=== PATIENT | male | born 1970 | race Caucasian/White ===

== ENCOUNTER 2024-06-03 17:56 | Emergency (ER) | payer OTHER, SELFPAY ==
[2024-06-03 18:02] VITALS: BP 145/94; PULSE 73; RESP 16; TEMP 36.7; O2SAT 100
--- NOTE | 2024-06-03 18:16 | ED_ITS ---
HPI - General Adult General Chief complaint: Extremity Injury, Upper Stated complaint: Left Leg Injury Time Seen by Provider: 06/03/24 18:17 Source: patient Mode of arrival: ambulatory Limitations: no limitations History of Present Illness HPI narrative: 53-year-old male presented for complaint of a wound to the left lower posterior leg sustained 2 months ago. He states he cut the leg on a metal cart, and has c leaned the site with soap and applied antibiotic ointment since the injury. Also applied Prid and attempted to drain the site using a new razor blade a few times. He states it feels like something needs to come out of it. Denies redness, swelling, warmth or pain to the site. Related Data Allergies Allergy/AdvReac Type Severity Reaction Status Date / Time No Known Allergies Allergy Verified 06/03/24 18:17 Review of Systems Review of Systems: CONSTITUTIONAL: Denies body aches, fever, chills, or sweats. EYES: Denies visual changes, redness, or discharge. ENT: Denies rhinorrhea, congestion CARDIOVASCULAR: Denies chest pain, palpitations, or edema. RESPIRATORY: Denies cough or dyspnea. GASTROINTESTINAL: Denies abdominal pain, nausea, vomiting, or diarrhea. SKIN: per HPI MUSCULOSKELETAL: Denies back pain, joint pain, or myalgia. NEUROLOGIC: Denies headache, numbness, tingling, or weakness. PMFSH Comments At time of signature, I have reviewed and agree with nursing past medical, surgical, social and family history unless otherwise noted. Please see nursing chart for further information. There is no relevant family history pertinent to the presenting complaint Exam Narrative: GENERAL: Well-appearing EYES: conjunctivae clear, and EOMI. ENT: Mucous membranes moist. Oropharynx without edema, erythema or lesions. CHEST: Clear to auscultation. HEART: Regular rate and rhythm. SKIN: Warm, dry. left posterior lower leg with 1.2cm dried round scabbed area, no fluctuance, warmth, erythema or tenderness. Mild light erythema surrounding the scabbed area c/w previously applied bandaid adhesive. NEURO: Alert and oriented x3. Course Course Emergency Course: Patient is aware of diagnosis, understands and agrees to treatment plan. Anticipatory guidance given. Patient agrees to follow-up as directed and is aware of reasons to seek care at the emergency department. Portions of this record may have been created with voice recognition software [facility] Care: Express Care Visit Vital Signs Vital signs: Reviewed Medical Decision Making MDM Narrative Medical decision making narrative: Discussed physical exam findings. Updated tetanus. Advised supportive measures and signs/symptoms to go to the ER. Pt is appropriate for outpt treatment and f/u. Differential Diagnosis Differential Diagnosis: Laceration, abrasion, avulsion, cellulitis, abscess Discharge Plan Discharge Clinical Impression: Visit for wound check Patient Disposition: Home, Self-Care Condition: Stable Instructions: Antibiotic Form, Acute Wounds (ED) Additional Instructions: Keep the area clean and dry - cleanse with warm water and mild soap and allow to fully dry. Ok to apply neosporin to the site Keep it open to air (no bandages) Watch for worsening symptoms including pain, redness, swelling, streaking, pus/drainage, fever. Go to the ER with any of these symptoms or concerns. Follow up with primary care provider in 1 week as needed. Prescriptions: New cephalexin 500 mg capsule 500 mg PO Q8H 5 Days Qty: 15 0RF Follow-up/Referrals: PHYSICIAN,FIRE EXTINGUISHER CHARGER [Primary Care Provider] -
[2024-06-03] MEDS: TETANUS,DIPHTHERIA,AC PERTUSSIS ADULT (0.5 ML) BOOSTRIX IM (18:30)
== END 2024-06-03 18:48 | disposition home or self-care (01) ==
PROVIDERS: Emergency Provider Nurse Practitioner Family
DX: Z48.00 Encounter for change or removal of nonsurgical wound dressing (principal)
CPT/HCPCS: 90471; 90715; 99203; G0463

== ENCOUNTER 2025-03-10 11:08 | Emergency (ER) | payer OTHER, SELFPAY ==
--- NOTE | 2025-03-10 11:09 | ED.URI ---
HPI - URI/Sore Throat General Chief Complaint: Upper Respiratory Infection Stated Complaint: cold/flu Time Seen by Provider: 03/10/25 11:08 Source: patient Mode of arrival: ambulatory Limitations: no limitations History of Present Illness HPI Narrative: Clyde is a 54-year-old male patient presenting to the clinic today with complaints sore throat, runny nose, cough, sneezing, nasal congestion, nausea, vomiting, and some body aches x3 days. He reports his has had similar symptoms x1 week. He denies any fevers or chills. Denies any shortness of breath, chest pain, or abdominal pain. Has taken Sudafed for his symptoms. He is a 1 ogsb-dbj-dcb tobacco smoker. Related Data Home Medications ?Medication ?Instructions ?Recorded ?Confirmed ?Last Taken ?Type No Home Medications 03/10/25 03/10/25 Unknown History Allergies Allergy/AdvReac Type Severity Reaction Status Date / Time No Known Allergies Allergy Verified 03/10/25 11:22 Review of Systems Review of Systems: Pertinent positives per HPI. Patient denies any fever, chills, rash, headache, visual changes, dizziness, shortness of breath, chest pain, palpitations, diarrhea, constipation, abdominal pain, or any urinary issues. PMFSH Comments At the time of my signature, I reviewed and agree with the nursing past medical, surgical, social, and family history. There is no relevant family history pertinent to the patient complaint. Exam Narrative: General: Well-developed, well nourished, in no apparent distress Head: Normocephalic, atraumatic Eyes: Pupils equally round and reactive to light bilaterally, EOM intact, sclera and conjunctive clear, no discharge, lids normal Ears: TMs intact and congested, ear canals clear, no drainage, grossly hearing normal. Nose: Nares patent, clear nasal discharge, mild inflammation, no sinus tenderness. Mouth: Oropharynx red without lesions or masses, good dentition, MMM. Postnasal drip Neck: Supple, trachea midline, no enlargement of anterior or posterior cervical nodes, no thyroid masses or goiter palpable. Cardio: Regular rate and rhythm, s1 and s2 normal, no murmur appreciated. Resp: Clear to auscultation bilaterally anteriorly and posteriorly, no rhonchi, rales, wheezing or rubs Course Course Emergency Course: Portions of this record may have been created with voice recognition software. Level of Care: Express Care Visit Vital Signs Vital signs: Vital Signs Temperature 36.9 C 03/10/25 11:16 Pulse Rate 93 03/10/25 11:16 Respiratory Rate 20 03/10/25 11:16 Blood Pressure 185/89 H 03/10/25 11:16 Pulse Oximetry 100 03/10/25 11:16 Oxygen Delivery Room Air 03/10/25 11:16 Temperature 36.9 C 03/10/25 11:16 Pulse Rate 93 03/10/25 11:16 Respiratory Rate 20 03/10/25 11:16 Blood Pressure 185/89 H 03/10/25 11:16 Pulse Oximetry 100 03/10/25 11:16 Oxygen Delivery Room Air 03/10/25 11:16 Vital signs reviewed MDM - URI/Sore Throat MDM Narrative Medical decision making narrative: At the time of visit patient is resting comfortably on the exam table. Patient appears to be nontoxic. Complaints sore throat, runny nose, cough, sneezing, nasal congestion, nausea, vomiting, and some body aches x3 days. He reports his has had similar symptoms x1 week. He denies any fevers or chills. Denies any shortness of breath, chest pain, or abdominal pain. Has taken Sudafed for his symptoms. He is a 1 ibsb-tll-wfp tobacco smoker. On exam patient has bilateral ear congestion, clear nasal drainage, oral pharynx red with postnasal drip, lung sounds are clear, and heart rates regular rate and rhythm. COVID, flu, and strep test were ordered. Labs: COVID, influenza, and strep test were performed and all testing was negative in the clinic today. We will send strep for culture Plan: I suspect patient has URI/pharyngitis/viral syndrome. Work note was given. Supportive measures were discussed with the patient and they voiced understanding discharge instructions and agrees to treatment plan. Return precautions reviewed Differential Diagnosis Differential diagnosis: Likely upper respiratory infection, croup, otitis media, sinusitis, viral infection, bronchitis, influenza, pharyngitis and other (COVID) Discharge Plan Discharge Clinical Impression: Viral infection Upper respiratory infection Qualifiers: URI type: unspecified URI Qualified Code(s): J06.9 - Acute upper respiratory infection, unspecified Pharyngitis Qualifiers: Pharyngitis/tonsillitis etiology: unspecified etiology Qualified Code(s): J02.9 - Acute pharyngitis, unspecified Patient Disposition: Home Condition: Stable Instructions: Antibiotic Form, Pharyngitis (ED), Upper Respiratory Infection (ED), Viral Syndrome (ED) Additional Instructions: COVID, flu, and strep test were performed in the clinic today. We will send strep for culture if this comes back positive we will contact you in place you on antibiotics at that time. May take Coricidin HBP for cold/flu symptoms Increase fluids and stay well hydrated May take Tylenol or motrin as directed on bottle for pain/fever May use Flonase 1 spray in each nare daily May take OTC antihistamines such as Zyrtec or Claritin daily as directed on bottle May apply Vicks vapor rub to chest to open sinuses Sinus rinses for congestion Cepacol spray, cough drops, throat lozenges, warm tea with honey/lemon, gargle salt water to soothe throat BRAT diet for diarrhea Clear liquids x 24 hours then advance as tolerated for nausea/vomiting Go to the ED if you develop a worsening in your condition- high fever not controlled by Tylenol or Motrin, dehydration, weakness, lethargy, shortness of breath, or chest pain. Follow up with your PCP in 3-5 days if symptoms persist. You have an elevated blood pressure in the clinic today and I recommend follow-up with primary care physician to have this reevaluated within the next week if symptoms persist. [place] [employer] guidelines state that normal blood pressure is 120/80 or less. Anything over 120/80 is considered elevated and should be monitored. You may need to decrease you salt intake and eat a heart healthy diet to help lower you blood pressure, other treatments would include decreasing stress, weight loss, stop caffeine, and quit smoking. Your primary care provider can determine whether you need to start antihypertensive medications. Untreated high blood pressure can cause dizziness, headaches, visual changes, blindness, kidney failure, stroke, heart attack, and male impotence. Patient Language: Cook Islander Prescriptions: No Action No Home Medications Follow-up/Referrals: UNKNOWN,DOCTOR [Non-Staff] Stand Alone Forms: Work/School Release IP Time of Disposition: 11:40 Quality NIHSS Nursing Documentation ED NIHSS nursing documentation: reviewed/agree
[2025-03-10 11:16] VITALS: BP 185/89; PULSE 93; RESP 20; TEMP 36.9; O2SAT 100
--- OUTSIDE RECORDS SUMMARY | 2025-03-10 11:35 | XMS_ITS | Clinical Summary ---
Author Organization [facility] Address [address] [facility], [address] [address] Phone Care Team Providers Care Retort Load Expediter Name Role Phone Emily Middleton APRN, CNP Primary Care Provider [phone] Duy Fan MD Unavailable Allergies No known active allergies Medications omeprazole (PriLOSEC) 20 MG CAPSULE DELAYED RELEASEIndicati ons:GERD Take 1 Capsule by mouth daily. Indications: GERD 90 Capsule 3 07/30/2024 Active Active Problems Problem Noted Date Diagnosed Date Benign prostatic hyperplasia without lower urinary tract symptoms 07/30/2024 Eczema of both upper extremities 10/15/2018 Gastroesophageal reflux disease 08/27/2018 Visit for well [facility] 08/27/2018 Resolved Problems Problem Noted Date Diagnosed Date Resolved Date Hypertension 08/27/2018 08/27/2018 Fatigue 08/27/2018 10/15/2018 Other constipation 08/27/2018 9 Immunizations Immunization Administration Dates Next Due TDAP Vaccine 07/06/2019 Family History Medical History Relation Name Comments No Known Problems Daughter Cancer Father lung and brain Lung Cancer Father No Known Problems Half-Sister Hypertension Maternal Grandmother Crohn's Disease Mother High Cholesterol Mother Hypertension Mother Stroke Mother to gi system Cancer Paternal Grandfather Hypertension Paternal Grandfather GERD Sister 1 High Cholesterol Sister 1 Hypertension Sister 1 No Known Problems Sister 2 Joselin No Known Problems Son Relation Name Status Comments Daughter Alive Father Half-Sister Alive Maternal Grandfather Maternal Grandmother Mother Paternal Grandfather Paternal Grandmother Sister 1 Alive Sister 2 Joselin Alive Son Alive Social History Tobacco Use Types Packs/Day Years Used Date Smoking Tobacco: Every Day Cigarettes 1 39.7 Started: 1985 Smokeless Tobacco: Never Alcohol Use Standard Drinks/Week Comments No 0 (1 standard drink = 0.6 oz pur e alcohol) PHQ-2 Answer Date Recorded Total Score - Questions 1-9 0 07/04 Sexually Active Control Partners Comments Yes Female Sex and Gender Information Value Date Recorded Sex Assigned at Not on file Legal Sex Male 7:14 PM CDT Gender Identity Not on file Sexual Orientation Not on file Last Filed Vital Signs Vital Sign Reading Time Taken Comments Blood Pressure 139/95 11/18/2024 12:55 PM CDT Pulse 69 11/18/2024 12:55 PM CDT Temperature 37 C (98.6 F) 11/18/2024 11:08 AM CDT Respiratory Rate 17 11/18/2024 12:55 PM CDT Oxygen Saturation 100% 11/18/2024 12:55 PM CDT Inhaled Oxygen Concentration - - Weight 79.8 kg (176 lb) 11/07/2024 2:12 PM CDT Height 175.3 cm (5' 9) 11/07/2024 2:12 PM CDT Body Mass Index 25.99 11/07/2024 2:12 PM CDT Plan of Treatment Health Maintenance Due Date Last Done Comments Hepatitis C Virus (HCV) Screening 1970 Hepatitis B Immunization (1 of 3 - 19+ 3-dose series) 09/25/1990 Pneumococcal Immunization (5 0+ years) (1 of 2 - PCV) 09/25/1990 Cologuard 09/25/2016 Immunochemical Fecal Occult Blood 09/25/2016 Zoster Immunization (1 of 2) 09/25/2021 Influenza Immunization (#1) 2025 SARS-COV-2 Immunization (3 - 2024- season) 2025 02/09/2021, 01/19/2021 Lung Cancer Screening 10/14/2025 10/14/2024 Td Immunization Every 10 Yea rs (Adults With 1 Tdap) 07/06/2029 07/06/2019 Colonoscopy 11/18/2029 11/18/2024, 11/18/2024, 10/01/2018 Colorectal Cancer Screening 11/18/2029 Respiratory Syncytial Virus (RSV) Immunization (Adult) (1 - 1-dose 75+ series) 09/25/2046 Human Papillomavirus (HPV) Immunization Aged Out No longer eligible b ased on patient's age to complete this topic Meningococcal Immunization (ACWY) Aged Out No longer eligible b ased on patient's age to complete this topic Rotavirus Immunization Aged Out No lo nger eligible based on patient's age to complete this topic Procedures Procedure Name Priority Date/Time Associated Diagnosis Comments CT CHEST SCREENING WO Routine 10/14/2024 5:33 PM CDT Encounter for screening for lung cancer from Last 3 Months or Most Recently Relevant to Health Maintenance Results * CT CHEST SCREENING WO (10/14/2024 5:33 PM CDT) Anatomical Region Laterality Modality Chest N/A Computed Tomogra phy 10/25/2024 8:12 AM CDT Impressions 10/25/2024 8:14 AM CDT IMPRESSION: Mixed attenuation, sub solid nodule within the right upper lobe measuring 8 mm in maximum dimension. Six-month follow-up LD CT is recommended. Additional scattered bilateral pulmonary nodules measuring up to 4 mm. Utda-hd-iknqtgbv upper lobe predominant emphysema with pleuroparenchymal scarring in the apices. Bronchial wall thickening as can be seen with chronic bronchitis in current smokers. Centrilobular nodules as can be seen in the setting of respiratory bronchiolitis. Additional findings as above. Lung-RADS category 3: Probably benign. Recommendation: Low dose CT of chest in 6 months. Narrative 10/25/2024 8:14 AM CDT EXAM DESCRIPTION: CT CHEST SCREENING WO REASON FOR STUDY: Screening CT of the chest in a current smoker with a 25 pack year smoking history. Additional history: Father with history of lung carcinoma.. TECHNIQUE: Low dose CT scan of the chest was performed without intravenous contrast using helical scanning technique. The exam extends from the lung apices through the lung bases. Automatic exposure control was used as a dose optimization technique. NOTE: This study was performed for the specific purposes of lung cancer screening and is not an alternative to diagnostic chest CT. RADIATION DOSE: CT dose index volume (CTDIvol) = 3.42 mGy COMPARISON: None FINDINGS: SMOKING RELATED LUNG DISEASE: There is gaxy-tu-fvodszeo upper lobe predominant emphysema, with some pleuroparenchymal scarring within the apices. Both centrilobular and paraseptal components are present. There is bronchial wall thickening as can be seen with chronic bronchitis in current smokers. In addition, there are centrilobular nodules, as can be seen in the setting of respiratory bronchiolitis. LUNG NODULES: 3 mm nodule right apex image 49. There is a mixed attenuation, sub solid nodule noted within the right upper lobe on image number 109, measuring 8 mm in maximum dimension. The punctate more solid nodular components measure approximately 1 mm. Tiny bilateral nodules at the fissures, measuring up to 4 mm. Scattered tiny granulomatous calcifications. 4 mm nodule right lower lobe image number 158 4 mm nodule lateral right lower lobe, image 193. 2 mm nodule posterolateral left lower lobe image 113. CORONARY ARTERY CALCIFICATION: Minimal OTHER: No pneumonic consolidation. There is subsegmental scarring and atelectasis. There is no effusion or pneumothorax. There are secretions within the dependent trachea. The thyroid gland is unremarkable. There are scattered subcentimeter mediastinal and hilar nodes. The esophagus is unremarkable. The heart is normal in size without pericardial effusion. The thoracic aorta is normal in caliber. There is axillary lymphadenopathy. Scattered nodes measure up to 8.5 mm short axis. The chest wall is unremarkable. Visualized upper abdomen reveals atherosclerotic vascular calcifications. There is diverticulosis. There is no acute osseous abnormality. Thoracic spondylosis and degenerative disc disease. THIS IS AN ELECTRONICALLY VERIFIED FINAL REPORT 10/25/2024 8:12 AM - Electronically signed by Sydney Downing M.D. TW: RAFAT Report ID: [id number] Reading Location: [id number] Procedure Note Sydney Downing MD - 10/25/2024 EXAM DESCRIPTION: CT CHEST SCREENING WO REASON FOR STUDY: Screening CT of the chest in a current smoker with a 25 pack year smoking history. Additional history: Father with history of lung carcinoma.. TECHNIQUE: Low dose CT scan of the chest was performed without intravenous contrast using helical scanning technique. The exam extends from the lung apices through the lung bases. Automatic exposure control was used as a dose optimization technique. NOTE: This study was performed for the specific purposes of lung cancer screening and is not an alternative to diagnostic chest CT. RADIATION DOSE: CT dose index volume (CTDIvol) = 3.42 mGy COMPARISON: None FINDINGS: SMOKING RELATED LUNG DISEASE: There is oakp-cd-raodqgto upper lobe predominant emphysema, with some pleuroparenchymal scarring within the apices. Both centrilobular and paraseptal components are present. There is bronchial wall thickening as can be seen with chronic bronchitis in current smokers. In addition, there are centrilobular nodules, as can be seen in the setting of respiratory bronchiolitis. LUNG NODULES: 3 mm nodule right apex image 49. There is a mixed attenuation, sub solid nodule noted within the right upper lobe on image number 109, measuring 8 mm in maximum dimension. The punctate more solid nodular components measure approximately 1 mm. Tiny bilateral nodules at the fissures, measuring up to 4 mm. Scattered tiny granulomatous calcifications. 4 mm nodule right lower lobe image number 158 4 mm nodule lateral right lower lobe, image 193. 2 mm nodule posterolateral left lower lobe image 113. CORONARY ARTERY CALCIFICATION: Minimal OTHER: No pneumonic consolidation. There is subsegmental scarring and atelectasis. There is no effusion or pneumothorax. There are secretions within the dependent trachea. The thyroid gland is unremarkable. There are scattered subcentimeter mediastinal and hilar nodes. The esophagus is unremarkable. The heart is normal in size without pericardial effusion. The thoracic aorta is normal in caliber. There is axillary lymphadenopathy. Scattered nodes measure up to 8.5 mm short axis. The chest wall is unremarkable. Visualized upper abdomen reveals atherosclerotic vascular calcifications. There is diverticulosis. There is no acute osseous abnormality. Thoracic spondylosis and degenerative disc disease. THIS IS AN ELECTRONICALLY VERIFIED FINAL REPORT 10/25/2024 8:12 AM - Electronically signed by Sydney Downing M.D. TW: RAFAT Report ID: [id number] Reading Location: [id number] IMPRESSION: Mixed attenuation, sub solid nodule within the right upper lobe measuring 8 mm in maximum dimension. Six-month follow-up LD CT is recommended. Additional scattered bilateral pulmonary nodules measuring up to 4 mm. Rfzo-jp-lofnxhmf upper lobe predominant emphysema with pleuroparenchymal scarring in the apices. Bronchial wall thickening as can be seen with chronic bronchitis in current smokers. Centrilobular nodules as can be seen in the setting of respiratory bronchiolitis. Additional findings as above. Lung-RADS category 3: Probably benign. Recommendation: Low dose CT of chest in 6 months. Emily Middleton APRN, CNP IMIsaak CT ORDERABLES Final R esult from Last 3 Months or Most Recently Relevant to Health Maintenance Insurance [facility] Care Teams Retort Load Expediter Relationship Specialty Start Date End Date Emily Middleton, KASHMIR BARCLAY [address] [facility] [place] [address] PCP - General Advanced Practice Nurse 07/30/24 Duy Fan MD [address] [facility] [address] [place] [address] Consulting Physician Colon and Rectal Surgery 09/17/24
--- OUTSIDE RECORDS SUMMARY | 2025-03-10 11:35 | XMS_ITS | Clinical Summary ---
Author Organization [facility] Address [address] [place] [address] Phone Care Team Providers Care Jewelry Enameler Name Role Phone Unavailable Primary Care Provider Unavailabl e Allergies No known active allergies Medications omeprazole (PriLOSEC) 20 mg Capsule, Delayed Release(E.C.) Take 20 mg by mouth daily. Active mupirocin (BACTROBAN) 2 % Ointment Apply to affected area of left fingers daily. 22 Gram 08/31/2020 4:56 PM MEDICAL ASSISTING INSTRUCTOR 1 Active HYDROcodone-acet aminophen (Lantry) 7.5-325 mg TabletIndication s:Laceration of finger of left hand without foreign body with damage to nail, unspecified finger, initial encounter Take 1 Tablet by mouth every 4 hours as needed for Pain. Max Daily Amount: 6 Tablets 20 Tablet 08/31/2020 6:15 PM MEDICAL ASSISTING INSTRUCTOR 1 Active Family History Medical History Relation Name Comments Unknown Father Unknown Mother Relation Name Status Comments Father Mother Social History Tobacco Use Types Packs/Day Years Used Date Smoking Tobacco: Every Day Smokeless Tobacco: Never Alcohol Use Standard Drinks/Week Comments Not Currently 0 (1 standard drink = 0.6 oz pur e alcohol) Sex and Gender Information Value Date Recorded Sex Assigned at Not on file Legal Sex Male 2:54 PM MEDICAL ASSISTING INSTRUCTOR Gender Identity Not on file Sexual Orientation Not on file Last Filed Vital Signs Vital Sign Reading Time Taken Comments Blood Pressure 162/92 08/31/2020 3:03 PM MEDICAL ASSISTING INSTRUCTOR Pulse 106 08/31/2020 3:03 PM MEDICAL ASSISTING INSTRUCTOR Temperature 36.9 C (98.4 F) 08/31/2020 3:03 PM MEDICAL ASSISTING INSTRUCTOR Respiratory Rate 19 08/31/2020 3:03 PM MEDICAL ASSISTING INSTRUCTOR Oxygen Saturation 100% 08/31/2020 3:03 PM MEDICAL ASSISTING INSTRUCTOR Inhaled Oxygen Concentration - - Weight 77.1 kg (170 lb) 08/31/2020 3:03 PM MEDICAL ASSISTING INSTRUCTOR Height 175.3 cm (5' 9) 08/31/2020 3:03 PM MEDICAL ASSISTING INSTRUCTOR Body Mass Index 25.1 08/31/2020 3:03 PM MEDICAL ASSISTING INSTRUCTOR Plan of Treatment Health Maintenance Due Date Last Done Comments DTAP/TDAP/TD VACCINES (1 - Tdap) 09/25/1990 HEPATITIS B VACCINES (1 of 3 - 19+ 3-dose series) 09/01 COLORECTAL SCREENING 09/25/2016 Colorectal Cancer Screening 09/25/2016 FIT-DNA Q 3 years 09/25/2016 FIT/FOBT Q 1 year 09/25/2016 Flex Sig/CT Colonography Q 5 years 09/25/2016 ZOSTER VACCINE (1 of 2) 09/25/2021 INFLUENZA VACCINE (#1) 2025 Insurance [employer] (INTERNAL) [place] [address]
[2025-03-10 11:48] LABS: EDCOVIDSCREEN Negative (Negative); EDINFLUASCREEN Negative (Negative); EDINFLUBSCREEN Negative (Negative); EDSTREPNEGPOS1 Negative (Negative)
== END 2025-03-10 11:42 | disposition home or self-care (01) ==
PROVIDERS: Emergency Provider Nurse Practitioner Family
DX: B34.9 Viral infection, unspecified (principal); J06.9 Acute upper respiratory infection, unspecified; J02.9 Acute pharyngitis, unspecified; Z20.822 Contact with and (suspected) exposure to COVID-19
CPT/HCPCS: 87081; 87426; 87804; 87880; 99213; G0463